=== PATIENT | female | born 1955 | race Caucasian/White ===

== ENCOUNTER → 2017-12-02 | Day surgery (SDC) | payer OTHER ==
--- NOTE | 2017-12-05 08:58 | MMO ---
LEFT BREAST STEREOTACTIC BIOPSY: HISTORY: Left breast calcifications. COMPARISON: 12/24/16, 04/26/17, 11/23/17. FINDINGS: Unsuccessful left breast stereotactic biopsy. Calcifications could be identified in the CC projectio n; however, stroke margin would not allow the biopsy to be performed. The needle would hit the carbo n fiber plate in the back. Therefore, the patient's breast was compressed in the LM projection. How ever, given that the calcifications were deep and just superficial to the pectoralis muscle, the calc ifications could not be visualized on the lateral projection. TECHNIQUE: Consent was obtained to perform a left breast stereotactic biopsy. The patient was placed in the pron e position on the table. The left breast was placed through the holes in the table. On the CC proje ction, calcifications were identified. However, stroke margin would not allow the biopsy to be perfo rmed. Therefore, the breast was compressed in the lateral medial projection. Calcifications could n ot be visualized. Therefore, the biopsy could not be performed. IMPRESSION: Inability to perform a left breast stereotactic biopsy. The patient should be scheduled for surgical consultation for followup needle localization with surgical excision biopsy. Results of the study were discussed with Dr. Iglesias 12/02/17 at 8:54 a.m. CODE ALEXANDREA POS: GIDEON
== END ==
LOC: SDC/OP 06:35
PROVIDERS: ATTEND Pediatrics
DX: R92.0 Mammographic microcalcification found on diagnostic imaging of breast (principal); Z53.9 Procedure and treatment not carried out, unspecified reason